=== PATIENT | female | born 1990 | race American Indian/Alaskan Native ===

== ENCOUNTER 2018-05-10 20:56 | Emergency (ER) | payer OTHER ==
[2018-05-10 21:47] VITALS: BP 131/78
[2018-05-10 22:06] LABS: Basophils # (Auto) 0.1 K/mm3 (0.0-0.1); Basophils % (Auto) 0.5 % (0.0-1.8); Eosinophils % (Auto) 0.2 % (0.0-4.3); Hematocrit 32.4 % (30.3-42.9); Lymphocytes # (Auto) 3.5 K/mm3 (1.2-5.4); Lymphocytes % (Auto) 32.9 % (13.4-35.0); Mean Corpuscular HGB Conc 34 % (30-34); Mean Corpuscular Volume 80 fl (79-97); Monocytes # (Auto) 0.8 K/mm3 (0.0-0.8); Monocytes % (Auto) 7.8 % (0.0-7.3); Platelet Count 405 K/mm3 (140-440); Red Blood Count 4.05 M/mm3 (3.65-5.03); Red Cell Distribution Width 17.1 % (13.2-15.2)
[2018-05-10 22:22] LABS: Alanine Aminotransferase 14 units/L (7-56); Albumin 4.2 g/dL (3.9-5); BUN/Creatinine Ratio 12; Blood Urea Nitrogen 7 mg/dL (7-17); Calcium 9.1 mg/dL (8.4-10.2); Hemolysis Index 2
[2018-05-11 00:49] LABS: Bacteria,Urine 1+ /HPF (Negative); Bilirubin,Urine NEG (Negative); Blood,Urine NEG (Negative); Color,Urine Yellow (Yellow); Mucus,Urine FEW /HPF; Protein,Urine <15 mg/dL mg/dL (Negative); RBC,Urine < 1.0 /HPF (0.0-6.0); Urobilinogen,Urine < 2.0 mg/dL (<2.0)
[2018-05-11 00:50] LABS: HCG Qualitative,Urine Negative (Negative)
--- NOTE | 2018-05-11 02:15 | Emergency Department Report ---
ED Female HPI - General Chief complaint: Abdominal Pain Stated complaint: VAGINAL PAIN/ABD PAIN Time Seen by Provider: 05/10/18 23:53 Source: patient Mode of arrival: Ambulatory Limitations: No Limitations - History of Present Illness Initial comments: 28-year-old [place] female was at work department complaining of a mild odorous vaginal discharge been present for the last 1 week. States she has not had any intravaginal sex, but does have been engaging in oral sex last child 2 or 3 days ago. Reports no fever, chills, sweats, chest pain, palpitations, vaginal bleeding. No dysuria. MD Complaint: vaginal discharge -: Gradual Improves with: none Worsens with: none Are you Now?: No Associated Symptoms: vaginal discharge. denies: vaginal bleeding, abdominal pain, headaches, loss of appetite, hematuria, rash, shortness of breath, syncope, weakness - Related Data Sexually active: Yes Previous Rx's Medication Instructions Recorded Last Taken Type metroNIDAZOLE [Flagyl] 500 mg PO Q12HR #14 tab 05/11/18 Unknown Rx Allergies Allergy/AdvReac Type Severity Reaction Status Date / Time No Known Allergies Allergy Verified 05/10/18 21:47 ED Review of Systems ROS: Stated complaint: VAGINAL PAIN/ABD PAIN Other details as noted in HPI Constitutional: denies: chills, fever Eyes: denies: eye pain, eye discharge, vision change ENT: denies: ear pain, throat pain Respiratory: denies: cough, shortness of breath, wheezing Cardiovascular: denies: chest pain, palpitations Endocrine: no symptoms reported Gastrointestinal: denies: abdominal pain, nausea, diarrhea Genitourinary: discharge. denies: urgency, dysuria Musculoskeletal: denies: back pain, joint swelling, arthralgia Skin: denies: rash, lesions Neurological: denies: headache, weakness, paresthesias Psychiatric: denies: anxiety, depression Hematological/Lymphatic: denies: easy bleeding, easy bruising ED Past Medical Hx - Past Medical History Previous Medical History?: No - Surgical History Past Surgical History?: Yes Additional Surgical History: D&C. tonsil - Social History Smoking Status: Never Smoker Substance Use Type: None - Medications Home Medications: Home Medications Medication Instructions Recorded Confirmed Last Taken Type metroNIDAZOLE [Flagyl] 500 mg PO Q12HR #14 tab 05/11/18 Unknown Rx ED Physical Exam - General Limitations: No Limitations General appearance: alert, in no apparent distress - Head Head exam: Present: atraumatic, normocephalic - Eye Eye exam: Present: normal appearance - ENT ENT exam: Present: mucous membranes moist - Neck Neck exam: Present: normal inspection - Respiratory Respiratory exam: Present: normal lung sounds bilaterally. Absent: respiratory distress - Cardiovascular Cardiovascular Exam: Present: regular rate, normal rhythm. Absent: systolic murmur, diastolic murmur, rubs, gallop - GI/Abdominal GI/Abdominal exam: Present: soft, normal bowel sounds - External exam: Present: normal external exam Speculum exam: Present: vaginal discharge Bi-manual exam: Present: normal bi-manual exam - Extremities Exam Extremities exam: Present: normal inspection - Back Exam Back exam: Present: normal inspection - Neurological Exam Neurological exam: Present: alert, oriented X3 - Psychiatric Psychiatric exam: Present: normal affect, normal mood - Skin Skin exam: Present: warm, dry, intact, normal color. Absent: rash ED Course Vital Signs 05/10/18 21:43 Temperature 98.4 F Pulse Rate 75 Respiratory 18 Rate Blood Pressure 131/78 O2 Sat by Pulse 100 Oximetry ED Medical Decision Making - Lab Data Result diagrams: 05/10/18 21:56 05/10/18 21:56 Critical care attestation.: If time is entered above; I have spent that time in minutes in the direct care of this critically ill patient, excluding procedure time. ED Disposition Clinical Impression: Bacterial vaginitis Disposition: DC-01 TO HOME OR SELFCARE Is pt being admited?: No Does the pt Need Aspirin: No Condition: Stable Instructions: Abdominal Pain (ED), Bacterial Vaginosis (ED) Prescriptions: metroNIDAZOLE [Flagyl] 500 mg PO Q12HR #14 tab Referrals: PRIMARY CARE, [Primary Care Provider] - 3-5 Days [facility] [Provider Group] - 3-5 Days Forms: STI Treatment and Prevention
== END 2018-05-11 02:47 | disposition home or self-care (01) ==
LOC: ED 20:56
DX: N76.0 Acute vaginitis (principal)
CPT/HCPCS: 36415; 80053; 81001; 81025; 84703; 85025; 87210; 87591; 99284

== ENCOUNTER 2021-06-18 17:49 | Emergency (ER) | payer SELFPAY ==
[2021-06-18 18:24] VITALS: BP 112/75
== END 2021-06-18 19:55 | disposition left against medical advice (07) ==
LOC: ED 17:49
DX: O26.851 Spotting complicating pregnancy, first trimester (principal); Z53.21 Procedure and treatment not carried out due to patient leaving prior to being seen by health care provider; Z3A.10 10 weeks gestation of pregnancy

== ENCOUNTER 2021-10-21 18:01 | Outpatient (CLI) | payer BC ==
[2021-10-21 18:50] VITALS: BP 111/58
[2021-10-21] MEDS ORDERED: LACTATED RINGERS 500 ML IV ONE (19:12)
[2021-10-21 19:20] LABS: Bilirubin,Urine NEG (Negative); Blood,Urine NEG (Negative); Color,Urine Yellow (Yellow); Urobilinogen,Urine < 2.0 mg/dL (<2.0)
[2021-10-21 19:26] LABS: Bacteria,Urine 2+ /HPF (Negative); Mucus,Urine 3+ /HPF
[2021-10-21] MEDS ORDERED: ACETAMINOPHEN 500 MG TAB PO ONE (20:30)
== END 2021-10-21 20:17 | disposition home or self-care (01) ==
LOC: TRG 18:01 → OB 18:02 → APU 18:06 → TRG 20:17
PROVIDERS: ATTEND Student in an Organized Health Care Education/Training Program
DX: Z34.93 Encounter for supervision of normal pregnancy, unspecified, third trimester (principal); Z3A.28 28 weeks gestation of pregnancy
CPT/HCPCS: 81001; 87086

== ENCOUNTER 2022-01-19 11:54 | Inpatient (IN) | payer BC ==
[2022-01-19] MEDS ORDERED: OXYTOCIN 10 UNIT/1 ML INJ IM PRN (14:19)
[2022-01-19] MEDS ORDERED: fentaNYL 100 MCG/2 ML INJ IV PRN (14:19)
[2022-01-19] MEDS ORDERED: CARBOPROST TROMETHAMINE 250 MCG/1 ML INJ IM PRN (14:19)
[2022-01-19] MEDS ORDERED: BUTORPHANOL 2 MG/1 ML INJ IV PRN (14:19)
[2022-01-19] MEDS ORDERED: DINOPROSTONE 10 MG VAG SUPP VG SCH (14:19)
[2022-01-19] MEDS ORDERED: LOPERAMIDE 2 MG CAP PO PRN (14:19)
[2022-01-19] MEDS ORDERED: MINERAL OIL 30 ML ORAL LIQD PO PRN (14:19)
[2022-01-19] MEDS ORDERED: METHYLERGONOVINE MALEATE 0.2 MG/ML VIAL IM PRN (14:19)
[2022-01-19] MEDS ORDERED: miSOPROStol 200 MCG TAB PR PRN (14:19)
[2022-01-19] MEDS ORDERED: TERBUTALINE 1 MG/1 ML INJ SUB-Q PRN (14:19)
[2022-01-19] MEDS ORDERED: ePHEDrine SULFATE 50 MG/1 ML INJ IV PRN (14:19)
--- NOTE | 2022-01-19 14:19 | History and Physical Report ---
History of Present Illness Date of examination: 01/19/22 Date of admission: 01/19/22 12:08 Chief complaint: sent from office History of present illness: pt here for IOL due to post dates and having nonreactive nst in the office today for post dates testing. She was intially scheduled in two days due to pt wanting to wait to see if natural labor occurrs. I d/w serial IOL and all questions were addressed and answered. She is GBS positive. EDC Calculations LMP: 01/12/2022 Gestational Age: weeks Past History : 2 Term Births: 0 Premature Births: 0 Living Children: 0 Para: 0 Mult. Births: 0 Prev : 0 Aborta: 1 Elect. Ab: 0 Spont. Ab: 1 Ectopics: 0 # 1 Delivery date: 2016 Weeks Gestation: 5? Delivery type: SAB Comments: No complications. No cardiac activity. D&C. Past Medical History: Reviewed history from 12/07/2011 and no changes required: Obesity Past Surgical History: Reviewed and updated today: D&C: 2017 Tonsillectomy Social History: Patient is single Smoking History: Patient has never smoked. 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 Infection History HIV Risk Eval: no Hepatitis B Risk Eval: low risk Personal hx. of genital herpes: yes Partner hx. of genital herpes: no Rash, Viral, or Febrile illness since last LMP? no Varicella/Chicken Pox Status: Previous Disease TB Risk: no Genetic History Congenital Heart Defect: Dad: no Yolette Disease: Dad: no Thalassemia Dad: no Neural Tube Defect Dad: no Down's Syndrome Dad: no Harsha-Sachs Dad: no Sickle Cell Disease/Trait Mom: yes Dad: no Comments: Father SCT Hemophilia Dad: no Muscular Dystrophy Dad: no Cystic Fibrosis Dad: no Byron Chorea Dad: no Mental Retardation Dad: no Fragile X Dad: no Other Genetic/Chromosomal Disorder Dad: no Child w/other defect Dad: no Enviromental Exposures Xray Exposure: no Medication, drug, or alcohol use since LMP: no Chemical/Other Exposure: no Exposure to Cat Liter: no Hx of Parvovirus (Fifth Disease): no Occupational Exposure to Children: none Current Allergies (reviewed today): * NKDA (Critical) Past History - Obstetrical History Expected Date of Delivery: 01/12/22 Actual Gestation: 41 Week(s) 1 Day(s) : 2 Medications and Allergies Allergies Allergy/AdvReac Type Severity Reaction Status Date / Time No Known Allergies Allergy Verified 05/10/18 21:47 Home Medications Medication Instructions Recorded Confirmed Last Taken Type Tablet 1 tab 01/19/22 1 Week Ago History ~01/12/22 Docusate Sodium [Colace] 100 mg PO BID #60 capsule 01/20/22 Unknown Rx Ibuprofen [Motrin 800 MG tab] 800 mg PO Q8HR #30 tablet 01/20/22 Unknown Rx Vit-Fe Fumar-FA [ 1 tab PO QDAY #30 tablet 01/20/22 Unknown Rx Vitamin] oxyCODONE /ACETAMINOPHEN [Percocet 1 tab PO Q6HR PRN #20 tablet 01/20/22 Unknown Rx 5/325] - Vital Signs Vital signs: Vital Signs Pulse Pulse Ox 89 99 01/19/22 12:54 01/19/22 12:54 Temp Pulse Resp BP Pulse Ox 98.3 F 80 20 116/55 99 01/19/22 13:04 01/19/22 13:49 01/19/22 13:04 01/19/22 13:05 01/19/22 13:49 Results Result Diagrams: 01/19/22 16:10 All other labs normal. Assessment and Plan - Patient Problems (1) 41 weeks gestation of Current Visit: Yes Status: Acute (2) Non-reactive NST (non-stress test) Current Visit: Yes Status: Acute Plan to address problem: -admit for iol -currently with cat 1 tracing and good variability.
[2022-01-19] MEDS ORDERED: LIDOCAINE (2%) 20 MG/1 ML VIAL 20 ML MDV INFILTRATI ONE (14:45)
[2022-01-19] MEDS ORDERED: ACETAMINOPHEN 325 MG TAB PO PRN (15:00)
[2022-01-19] MEDS ORDERED: AMPICILLIN/NS 2 GM/100 ML 2 GM/100 ML BAG IV ONE (15:00)
[2022-01-19] MEDS ORDERED: OXYTOCIN DRIP 30 UNITS/500 ML BAG IV SCH ×2 (15:00)
[2022-01-19 17:06] LABS: Hematocrit 33.2 % (30.3-42.9); Hemoglobin 10.7 gm/dl (10.1-14.3); Mean Corpuscular HGB Conc 32 % (30-34); Mean Corpuscular Volume 83 fl (79-97); Platelet Count 371 K/mm3 (140-440); Red Cell Distribution Width 16.3 % (13.2-15.2)
[2022-01-19] MEDS: LACTATED RINGERS 1,000 ML IV SCH (18:09)
[2022-01-19] MEDS: AMPICILLIN/NS 1 GM/50 ML 1 GM/50 ML BAG IV SCH ×2 (19:46→22:24)
[2022-01-20] MEDS: LACTATED RINGERS 1,000 ML IV SCH (05:28)
--- NOTE | 2022-01-20 08:46 | Event Note ---
Date: 01/20/22 To patient bedside for evaluation secondary to Cat 2 FHT with 2 minute deceleration noted at 8: 40. Patient in left lateral position with O2. Voices no complaints. SVE FT/thick/OOP. External monitors replaced and FHT noted to be in 150s-160s. Pitocin off. Discussed with patient will allow for recovery. However, if FHT does not imporve, may have to consider delivery. Will re-evaluate.
--- NOTE | 2022-01-20 09:32 | Event Note ---
Date: 01/20/22 To patient room to discussed plan of care. FHT reveiwed. Currently Cat 2 with min variability, but can see moderate at times. HAs had pitocin since 529 and unable to advance past 4 milliunits with out decelerations noted. Discussed as she is remote from delivery and fetus intolerant to advancement of induction agent and contractions, recommend delivery. Risks and benefits reviewed. Patient allowed to ask questions and agrees with plan. Preop orders placed.
--- NOTE | 2022-01-20 09:49 | Anesthesia Consultation ---
Anesthesia Consult and Med Hx Date of service: 01/20/22 - Airway Anesthetic Teeth Evaluation: Poor, Caps ROM Head & Neck: Adequate Mental/Hyoid Distance: Adequate Mallampati Class: Class II Intubation Access Assessment: Probably Good - Pulmonary Exam CTA: Yes - Cardiac Exam Cardiac Exam: RRR - Pre-Operative Health Status ASA Pre-Surgery Classification: ASA3 Proposed Anesthetic Plan: Spinal - Pulmonary Hx Smoking: No Hx Asthma: No - Cardiovascular System Hx Hypertension: No Hx Angina: No - Central Nervous System Hx Neuromuscular Disorder: No Hx Seizures: No Hx Psychiatric Problems: No - Gastrointestinal Hx Gastroesophageal Reflux Disease: Yes - Endocrine Hx Renal Disease: No Hx Liver Disease: No Hx Insulin Dependent Diabetes: No Hx Non-Insulin Dependent Diabetes: No Hx Hypothyroidism: No Hx Hyperthyroidism: No - Hematic Hx Anemia: No Hx Sickle Cell Disease: No - Other Systems Hx Alcohol Use: No Hx Substance Use: No Hx Obesity: Yes (BMI 40) - Additional Comments Anesthesia Medical History Comments: PSH: TONSELECTOMY 2010, SUCTION D&C 2018 M ISSED AB. NO ANESTHESIA COMPLICATIONS. RISK, BENEFITS AND ALTERNITIVES EXPLANED TO PATIENT AND . WOULD LIKE TO WAIT UNTIL SECTION HAS BEEN DECIDED BY DR POTTER BEFORE SIGNING CONSENT.
[2022-01-20] MEDS ORDERED: LACTATED RINGERS 1,000 ML IV SCH (10:00)
[2022-01-20] MEDS ORDERED: OXYTOCIN DRIP 30 UNITS/500 ML BAG IV SCH ×2 (10:00→17:00)
[2022-01-20] MEDS ORDERED: BICITRA ORAL LIQD 30ML PO NR (10:00)
[2022-01-20] MEDS ORDERED: METOCLOPRAMIDE 10 MG/2 ML INJ IV NR (10:00)
[2022-01-20] MEDS ORDERED: FAMOTIDINE 20 MG/2 ML INJ IV NR (10:00)
[2022-01-20] MEDS ORDERED: ceFAZolin/Water 2 GM/20 ML 2 GM/20 ML SYRINGE IV NR (10:00)
[2022-01-20] MEDS ORDERED: miSOPROStol 200 MCG TAB ONE (14:16)
[2022-01-20] MEDS ORDERED: CARBOPROST TROMETHAMINE 250 MCG/1 ML INJ IM ONE (14:16)
[2022-01-20] MEDS ORDERED: METHYLERGONOVINE MALEATE 0.2 MG/ML VIAL IM ONE (14:17)
[2022-01-20] MEDS ORDERED: BUPIVACAINE/PF (0.5%) 5 MG/1 ML 30 ML VIAL INFILTRATI ONE (14:27)
[2022-01-20] MEDS ORDERED: ONDANSETRON 4 MG/2 ML INJ ONE ×2 (14:27)
[2022-01-20] MEDS ORDERED: SODIUM CHLORIDE 0.9% 100 ML ONE (14:30)
[2022-01-20] MEDS ORDERED: PHENYLEPHRINE 10 MG/1 ML INJ SDV ONE (14:30)
[2022-01-20] MEDS ORDERED: LIDOCAINE MPF (2%) 20 MG/1 ML VIAL 5 ML ONE (15:35)
[2022-01-20] MEDS ORDERED: LACTATED RINGERS 1,000 ML ONE (15:38)
[2022-01-20] MEDS ORDERED: OXYTOCIN 10 UNIT/1 ML INJ ONE (16:02)
[2022-01-20] MEDS ORDERED: dexAMETHasone 20 MG/5 ML VIAL ONE (16:19)
[2022-01-20] MEDS ORDERED: ePHEDrine SULFATE 50 MG/1 ML INJ ONE (16:24)
[2022-01-20] MEDS ORDERED: KETOROLAC 30 MG/1 ML INJ ONE (16:25)
--- NOTE | 2022-01-20 16:50 | Operative Report ---
Operative Report Operative Report: Date of Procedure: January 20, 2022 Preoperative diagnosis: IUP @41 weeks and 1 day, intolerance to labor remote from delivery Postoperative diagnosis: same, s/p primary section Procedure: Low transverse section Surgeon: Clarissa Chang MD Serger: DAVID Anesthesia: CSE Complications: none QBL: 431 ml IV Fluids: 1500 ml UOP: 200 ml, clear urine at the end of procedure Indications: intolerance to labor remote from delivery Findings: 3690 g female in left occiput posterior position cephalic presentation with Apgars 9 & 9 Amniotic fluid clear Fallopian tubes normal in appearance bilaterally with a paratubal cyst noted on the right fallopian tube Ovaries normal in appearance bilaterally Procedure: The patient was taken to the operating room where CSE anesthesia was placed and found to be adequate. 2 g Ancef was given prior to the procedure. She was then prepared and draped in the usual sterile fashion in the dorsal supine position with a leftward tilt. A Pfannenstiel skin incision was made with the scalpel and carried through to the underlying layer of fascia with the bovie. The fascia was incised in the midline and the incision extended laterally. The superior aspect of the fascial incision was then grasped with the Jacek's cl amps, elevated, and the underlying rectus muscles dissected off bluntly and with sharp dissection using bovie. Attention was then turned to the inferior aspect of this incision which, in a similar fashion, was grasped, tented up with the Jacek clamps, and the rectus was dissected off bluntly and with sharp dissection. The rectus muscles were then in the midline, and the peritoneum identified and entered bluntly. The peritoneal incision was then extended superiorly and inferiorly with good visualization of the bladder. The bladder blade was then inserted and the vesicouterine peritoneum identified, grasped with the pick ups, and entered sharply with the Metzenbaum scissors. This incision was then extended laterally and the bladder flap created digitally. The bladder blade was then reinserted and the lower uterine segment incised in a transverse fashion with the scalpel. The uterine incision was then extended laterally digitally. The bladder blade was then removed and the infant was delivered via LOP position. Nuchal cord reduced. The nose and mouth were suctioned with the bulb suction and the cord clamped and cut. The infant was handed off to the waiting pediatricians.The placenta was then removed; the uterus exteriorized and cleared of all clots and debris. The uterine incision was repaired with 0 vicryl in a running locked fashion to obtain excellent hemostasis. An imbrication layer was done. An area of oozing was noed and a figure of eight suture was placed giving excellent hemostasis. Uterus returned to the abdomen. Interceed was placed over the incision. The rectus muscle was reapproximated with 2-0 vicryl. The fascia was reapproximated with 0 vicryl in a running fashion. Subcutaneous layer reapproximated with interrupted sutures of 2-0 vicryl. The skin was closed with 4-0 monocryl subcuticular stitch and the incision sealed with Steri-strips.The patient tolerated the procedure well. Sponge, lap, needle counts correct X 2. The patient was taken to the recovery room in a stable condition.
--- NOTE | 2022-01-20 17:05 | Anesthesia Day of Surgery ---
Anesthesia Day of Surgery - Day of Surgery Patient Examined: Yes Patient H&P Reviewed: Yes Patient is NPO: Yes
--- NOTE | 2022-01-20 17:11 | Progress Note ---
Spinal Anesthesia Block - Spinal Anesthesia Block Start Time: 14:38 Stop Time: 15:30 Performed by:: LON SUAREZ Procedure: Patient is requesting epidural for labor pain. H&P and labs reviewed. Procedure explained, questions answered, consent obtained. Patient placed in sitting position with monitors applied. Timeout performed immediately before start of procedure. Prep/drape in usual sterile fashion. Skin localized 5 mL 1% lidocaine at L[2]-L[3] interspace x3. SAB attempted x3. 5mL Lidocaine skin localization at L3-4. 17-gauge Tuohy epidural needle advanced to ERICKA with saline x 2 attempts at [8] cm. No blood/CSF noted via epidural needle. 24g spinal needle advanced into intrathecal space until clear, free flowing CSF noted. 0.5cc 0.75% hyperbaric bupivacaine 1.6mLand Precedex 0.5 mcg injected into intrathecal space. Spinal needle removed and epidural catheter advanced to [12] cm. Negative aspiration for blood and CSF via catheter. Sterile dressing applied followed by tape reinforcement. Patient tolerated procedure well. No immediate complications noted.
--- NOTE | 2022-01-20 17:13 | Progress Note ---
Regional Anesthesia Block - Regional Anesthesia Block Start Time: 16:46 Stop Time: 16:50 Performed By:: LON SUAREZ Procedure: Patient consented for TAP block for post surgical pain management. Patient identified, monitors placed, and time out performed. TAP identified bilaterally via ultrasound. Skin prepped bilaterally with [chlorhexidine] and [22g stimuplex] needle advanced to the TAP. [Marcaine 0.22% 35ml] injected under ultrasound guidance on the [left] side. [Marcaine 0.22% 35ml] injected under ultrasound guidance on the [right] side. Negative aspiration every 5mL, No change in heart rate or rhythm. Patient tolerated the procedure well. No apparent complications seen.
[2022-01-20] MEDS ORDERED: NALOXONE 0.4 MG/1 ML INJ IV PRN (17:30)
[2022-01-20] MEDS ORDERED: WITCH HAZEL/ GLYCERIN PAD TP PRN (17:30)
[2022-01-20] MEDS ORDERED: LANOLIN/ZINC/DIMETHICONE (LANSINOH) 7 GM TP PRN (17:30)
[2022-01-20] MEDS: MORPHINE 4 MG/1 ML INJ IV PRN (20:03)
[2022-01-20] MEDS: KETOROLAC 30 MG/1 ML INJ IV SCH (22:30)
[2022-01-21] MEDS: MORPHINE 4 MG/1 ML INJ IV PRN (02:50)
[2022-01-21] MEDS: KETOROLAC 30 MG/1 ML INJ IV SCH ×2 (04:00→08:25)
[2022-01-21 04:35] LABS: Hematocrit 30.8 % (30.3-42.9); Hemoglobin 10.3 gm/dl (10.1-14.3)
[2022-01-21] MEDS: PRENATAL VIT27-FE FUMARATE-FOLIC ACID VIT TAB PO SCH ×2 (08:25→09:32)
[2022-01-21] MEDS: FERROUS SULFATE 325 MG TAB PO SCH ×2 (08:25→09:32)
--- NOTE | 2022-01-21 12:24 | Progress Note ---
Assessment and Plan - Patient Problems (1) delivery delivered Current Visit: Yes Status: Acute Plan to address problem: Postoperative day #1. Patient without nausea vomiting. Patient tolerating advancing diet well Patient without fever. Will ambulate in halls. We will continue routine postoperative care. is doing well. Will continue routine post operative care. Patient's postoperative hematocrit is 30.8% Subjective - Subjective Date of service: 01/21/22 Patient reports: appetite normal, voiding normally, pain well controlled, flatu s, ambulating normally Tripp: doing well Objective - Vital Signs Latest vital signs: Vital Signs Temp Pulse Resp BP BP Pulse Ox Pulse Ox 01/21/22 09:05 97.9 F 70 18 98/56 96 01/21/22 08:30 98 01/21/22 04:41 98.4 F 92 H 20 101/58 96 01/21/22 02:50 18 01/21/22 00:46 98.3 F 77 20 94/45 99 01/20/22 22:30 16 01/20/22 22:00 97 01/20/22 20:58 98.7 F 75 20 109/53 100 01/20/22 20:33 16 01/20/22 20:03 18 01/20/22 18:30 97.4 F L 66 20 114/69 100 01/20/22 18:00 97.6 F 73 23 105/51 99 01/20/22 17:45 69 16 100/52 100 01/20/22 17:30 93 H 17 99/44 98 01/20/22 17:15 83 12 118/55 98 01/20/22 17:10 72 15 117/46 100 01/20/22 17:05 75 16 112/40 100 01/20/22 17:00 97.7 F 73 14 113/43 99 01/20/22 14:22 70 91 01/20/22 14:21 79 01/20/22 14:16 77 01/20/22 14:11 68 99 01/20/22 14:06 72 100 01/20/22 14:01 69 100 01/20/22 13:56 70 100 01/20/22 13:51 67 100 01/20/22 13:46 63 100 01/20/22 13:41 67 01/20/22 13:36 72 100 01/20/22 13:31 72 99 01/20/22 13:26 82 100 01/20/22 13:21 75 99 01/20/22 13:16 75 99 01/20/22 13:11 75 99 01/20/22 13:06 75 99 01/20/22 13:01 76 99 01/20/22 12:56 75 99 01/20/22 12:51 74 98 01/20/22 12:46 74 99 01/20/22 12:41 72 100 01/20/22 12:36 72 100 01/20/22 12:31 69 99 01/20/22 12:26 85 78 L 01/20/22 12:24 83 L Intake and Output 01/20/22 01/21/22 01/21/22 22:59 06:59 14:59 Intake Total 2200 240 Output Total 550 1200 600 Balance 1650 -960 -600 Intake: IV 2200 Oral 240 Output: Urine 550 1200 600 Indwelling Catheter 1200 600 Other: Total, Intake Amount 240 Total, Output Amount 400 600 # Voids Indwelling Catheter 1 Estimated Blood Loss 431 - Exam Breasts: Present: deferred Cardiovascular: Present: Regular rate Lungs: Present: Normal air movement Abdomen: Present: normal appearance, soft, tenderness (As expected postop) Uterus: Present: firm Extremities: Present: edema Incision: Present: dressed
[2022-01-21] MEDS: oxyCODONE /ACETAMINOPHEN 5-325MG TAB PO PRN ×2 (13:16→21:58)
[2022-01-21] MEDS: IBUPROFEN 800 MG TAB PO SCH (16:36)
--- NOTE | 2022-01-21 17:31 | Post Anesthesia Evaluation ---
- Post Anesthesia Evaluation Patient Participated: Yes Airway Patent: Yes Stable Respiratory Function: Yes Nausea/Vomiting: No Temp > 96.8F: Yes Pain Manageable: Yes Adequeate Hydration: Yes Anesthesia Complications: No Block Receding Appropriately: Yes Patient on Ventilator: No
[2022-01-22] MEDS: IBUPROFEN 800 MG TAB PO SCH ×3 (01:40→14:24)
[2022-01-22] MEDS: PRENATAL VIT27-FE FUMARATE-FOLIC ACID VIT TAB PO SCH (09:06)
[2022-01-22] MEDS: FERROUS SULFATE 325 MG TAB PO SCH (09:07)
[2022-01-22] MEDS: oxyCODONE /ACETAMINOPHEN 5-325MG TAB PO PRN (09:07)
--- NOTE | 2022-01-22 12:28 | Discharge Summary ---
Providers - Providers Date of Admission: 01/19/22 12:08 Date of discharge: 01/22/22 (desires d/c home) Attending physician: KRZYSZTOF SOLIS Primary care physician: DILCIA Toribio Reason for admission: IOL Condition: Good Pertinent studies: postop H&H 10.3/30.8 Procedures: primary c/s for [facility] course: uncomplicated c/s and postop course Disposition: 01 HOME / SELF CARE / HOMELESS Final Discharge Diagnosis (Prints w/discharge instructions): postop c/s Time spent for discharge: 20 - Discharge Diagnoses (1) delivery delivered Status: Acute Core Measure Documentation - Palliative Care Palliative Care/ Comfort Measures: Not Applicable - Core Measures Any of the following diagnoses?: none Exam - Constitutional Vitals: Temp Pulse Resp BP Pulse Ox 98.5 F 77 18 103/60 97 01/22/22 07:18 01/22/22 07:18 01/22/22 07:18 01/22/22 07:18 01/22/22 08:55 General appearance: Present: no acute distress, well-nourished - EENT Eyes: Present: PERRL ENT: hearing intact, clear oral mucosa - Neck Neck: Present: supple, normal ROM - Respiratory Respiratory effort: normal Respiratory: bilateral: CTA - Cardiovascular Heart Sounds: Present: S1 & S2. Absent: rub, click - Extremities Extremity abnormal: edema (2+ nonpitting) Peripheral Pulses: within normal limits - Abdominal General gastrointestinal: Present: soft, non-tender, non-distended, normal bowel sounds Female genitourinary: Present: normal - Integumentary Integumentary: Present: clear, warm, dry - Musculoskeletal Musculoskeletal: gait normal, strength equal bilaterally - Psychiatric Psychiatric: appropriate mood/affect, intact judgment & insight - Neurologic Neurologic: CNII-XII intact, moves all extremities - Additional findings Additional findings: lochia scant, fundus firm, incision D&I with steristrips Plan Activity: advance as tolerated Diet: regular Wound: open to air, keep clean and dry Follow up with: ASIYA POTTER MD [Staff Physician] - 7 Days Prescriptions: Docusate Sodium [Colace] 100 mg PO BID #60 capsule Ibuprofen [Motrin 800 MG tab] 800 mg PO Q8HR #30 tablet oxyCODONE /ACETAMINOPHEN [Percocet 5/325] 1 tab PO Q6HR PRN #20 tablet PRN Reason: Pain Vit-Fe Fumar-FA [ Vitamin] 1 tab PO QDAY #30 tablet
[2022-01-22 15:24] VITALS: BP 113/68
== END 2022-01-22 15:00 | disposition home or self-care (01) | DRG 788 ==
LOC: TRG 11:54 → APU 11:55 → TRG 12:08 → LD 12:08 → APU 01-20 15:24 → OB 01-20 18:22
PROVIDERS: ADMIT Obstetrics & Gynecology; ATTEND Obstetrics & Gynecology
PROC: 10D00Z1 Extraction of Products of Conception, Low, Open Approach (ICD-10-PCS; principal; 2022-01-20)
DX: O99.62 Diseases of the digestive system complicating childbirth (principal); Z3A.41 41 weeks gestation of pregnancy; Z37.0 Single live birth; Z20.822 Contact with and (suspected) exposure to COVID-19; O99.214 Obesity complicating childbirth; K21.9 Gastro-esophageal reflux disease without esophagitis
CPT/HCPCS: 36415; 85014; 85018; 85027; 86592; 86850; 86900; 86901; G0378; J3490; J7121; C1765; J0290; J1100; J1885; J2270; J2370; J2405; J2590; J2765; J7120; U0003